=== PATIENT | male | born 1955 | race Caucasian/White ===

== ENCOUNTER → 2016-08-01 | Outpatient (CLI) | payer MEDICAID ==
[~2016-08-01] MED LIST: ASPIRIN 32325 MG/TA1 PO; BACTRIM DS 8001 TAB PO; CLARITIN-D 10 M1 T24 PO; COD LIVER OIL1 CAP PO; DICLOXACILLIN500 MG PO; DOXYCYCLINE 10100 MG PO; FIORICET 325 MG1 TA1 PO; HUMIRA40 MG/0.1 SC; KLONOPIN 0.5MG0.5 MG PO; LIPITOR 80MG80 MG PO; LOPRESSOR 225 MG/TAB PO; MEDROL 4MG DOSPA4 MG PO; MEDROL4 MG; MOBIC 7.5MG7.5 MG PO; NAPROSYN500 MG PO; NATURAL MAGNES200 MG; NEURONTIN300 MG/CAP PO; NITRO-DUR0.2 MG/PAT TD; NITROSTAT0.4 MG/TAB SL; NORCO 325 MG-51 TAB PO; OMEGA-31 SGL PO; PERCOCET 325 MG1 TA2 PO; PHENERGAN 25 TA25 MG PO; PLAVIX 75MG TAB75 MG PO; PRAVACHOL 40MG40 MG PO; PREDNISONE 5MG5 MG PO; PREDNISONE20 MG PO; PRILOSEC 20MG20 MG PO; RANEXA 500MG T500 MG PO; SYNTHROID 0.10.15 MG PO; TIROSINT100 MCG PO; TOPROL XL 25MG25 MG; TOPROL XL 25MG25 MG PO; TURMERIC1 POW; VIT D; XANAX 0.5MG0.5 MG PO; ZYLOPRIM 100MG100 MG PO
[2016-08-01 10:39] LABS: BASO # 0.1 (0.0-0.2); BASO % 0.4 % (0.0-2.0); EOS # 0.2 (0.0-0.7); EOS % 1.5 % (0-4.0); GRAN # 8.7 (1.4-6.5); GRAN % 70.2 % (42.2-75.2); HEMATOCRIT 48.2 % (42.0-52.0); HEMOGLOBIN 15.5 g/dl (13.5-18.0); LYMPH # 2.6 (1.2-3.4); LYMPH % 20.6 % (20.0-51.0); MEAN CELL VOLUME 87 fl (80.0-100.0); MEAN CORPUSCULAR HEMOGLOBIN 28 pg (27.0-31.0); MEAN CORPUSCULAR HGB CONC 32 g/dl (33.0-37.0); MEAN PLATELET VOLUME 9.7 fl (7.4-10.4); MONO # 0.9 (0.1-0.6); MONO % 6.9 % (1.7-9.3); PLATELET COUNT 330 K/mm3 (130-400); RED BLOOD COUNT 5.54 M/mm3 (4.20-5.60); REDCELL DISTRIBUTION WIDTH-CV 14.6 % (11.5-14.5); WHITE BLOOD COUNT 12.5 K/mm3 (4.8-10.8)
[2016-08-01 10:47] LABS: ADJUSTED CALCIUM 9.2 mg/dL (8.4-10.2); ALBUMIN 4.2 gm/dL (3.5-5.0); BILIRUBIN,TOTAL 1.1 mg/dL (0.0-1.0); CALCIUM 9.4 mg/dL (8.4-10.2); CREATININE, serum 0.97 mg/dL (0.66-1.25); POTASSIUM 3.8 mmol/L (3.4-5.0); TOTAL PROTEIN 7.6 gm/dL (6.4-8.2)
== END ==
LOC: COL.LAB 10:01
PROVIDERS: Registered Nurse
DX: M06.89 Other specified rheumatoid arthritis, multiple sites (principal); Z79.899 Other long term (current) drug therapy

== ENCOUNTER 2016-12-17 09:26 | Emergency (ER) | payer MEDICAID ==
[~2016-12-17] VITALS: Ht 177.8 cm; Wt 109.1 kg
[~2016-12-17 09:26] MED LIST changes: -DICLOXACILLIN500 MG PO; -NAPROSYN500 MG PO; -PREDNISONE20 MG PO
[2016-12-17 09:35] VITALS: TEMP 98
[2016-12-17 10:19] LABS: BASO # 0.1 (0.0-0.2); BASO % 0.9 % (0.0-2.0); EOS # 0.2 (0.0-0.7); GRAN % 67.8 % (42.2-75.2); HEMATOCRIT 44.9 % (42.0-52.0); HEMOGLOBIN 14.8 g/dl (13.5-18.0); LYMPH # 1.9 (1.2-3.4); LYMPH % 21.3 % (20.0-51.0); MEAN CELL VOLUME 82 fl (80.0-100.0); MEAN CORPUSCULAR HEMOGLOBIN 27 pg (27.0-31.0); MEAN CORPUSCULAR HGB CONC 33 g/dl (33.0-37.0); MEAN PLATELET VOLUME 9.5 fl (7.4-10.4); MONO # 0.7 (0.1-0.6); MONO % 7.5 % (1.7-9.3); PLATELET COUNT 328 K/mm3 (130-400); RED BLOOD COUNT 5.49 M/mm3 (4.20-5.60); REDCELL DISTRIBUTION WIDTH-CV 14.3 % (11.5-14.5); WHITE BLOOD COUNT 8.8 K/mm3 (4.8-10.8)
[2016-12-17] MEDS ORDERED: NAPROSYN500 MG PO (10:28)
[2016-12-17] MEDS ORDERED: TOPROL XL 25MG25 MG PO (10:28)
[2016-12-17 10:34] LABS: ADJUSTED CALCIUM 10.1 mg/dL (8.4-10.2); ALANINE AMINOTRANSFERASE 18 U/L (21-72); ALKALINE PHOSPHATASE 84 U/L (50-136); ANION GAP 17 mmol/L (7-16); BLOOD UREA NITROGEN 16 mg/dL (9-20); CALCIUM 10.1 mg/dL (8.4-10.2); CARBON DIOXIDE 19 mmol/L (22-30); CHLORIDE 100 mmol/L (98-107); CREATININE, serum 1.13 mg/dL (0.66-1.25); GLUCOSE 143 mg/dL (74-106); SODIUM 135 mmol/L (137-145); TOTAL PROTEIN 7.6 gm/dL (6.4-8.2)
[2016-12-17 10:39] LABS: B-TYPE NATRIURETIC PEPTIDE 166 pg/mL (0-125)
[2016-12-17 10:42] LABS: ERYTHROCYTE SEDIMENTATION RATE 22 mm/hr (0-30)
[2016-12-17 10:45] LABS: TROPONIN-I < 0.012 ng/mL (0.000-0.034)
[2016-12-17] MEDS ORDERED: NORCO 325 MG-51 TAB PO (12:01)
[2016-12-17] MEDS ORDERED: PREDNISONE20 MG PO (12:01)
[2016-12-17] MEDS ORDERED: DOXYCYCLINE 10100 MG PO (12:01)
[2016-12-17 12:17] VITALS: BP 136/82; PULSE 84
[2016-12-21] MEDS ORDERED: DICLOXACILLIN500 MG PO (18:07)
== END 2016-12-17 12:19 | disposition home or self-care (01) ==
LOC: COL.ER 09:26
PROVIDERS: Emergency Medicine
DX: L02.415 Cutaneous abscess of right lower limb (principal); M06.9 Rheumatoid arthritis, unspecified; B95.7 Other staphylococcus as the cause of diseases classified elsewhere; I10 Essential (primary) hypertension; I25.10 Atherosclerotic heart disease of native coronary artery without angina pectoris; E78.00 Pure hypercholesterolemia, unspecified; Z91.19 Patient's noncompliance with other medical treatment and regimen; Z79.82 Long term (current) use of aspirin; Z95.1 Presence of aortocoronary bypass graft; Z95.5 Presence of coronary angioplasty implant and graft
CPT/HCPCS: J1170; J2405; J7030; J7512

== ENCOUNTER 2017-05-09 14:48 | Observation (INO) | payer MEDICAID ==
[~2017-05-09] VITALS: Ht 177.8 cm; Wt 99.6 kg
[~2017-05-09 14:48] MED LIST changes: +DICLOXACILLIN500 MG PO; +NAPROSYN500 MG PO; +PREDNISONE20 MG PO
[2017-05-09] MEDS ORDERED: MEDROL8 M1 PO (16:00)
[2017-05-09] MEDS ORDERED: HUMIRA40 MG/0.1 SQ (16:07)
[2017-05-09 16:09] LABS: ADJUSTED CALCIUM 9.9 mg/dL (8.4-10.2); ALANINE AMINOTRANSFERASE 39 U/L (21-72); ALBUMIN 3.9 gm/dL (3.5-5.0); ALKALINE PHOSPHATASE 96 U/L (50-136); ANION GAP 9 mmol/L (7-16); BILIRUBIN,TOTAL 1.2 mg/dL (0.0-1.0); BLOOD UREA NITROGEN 20 mg/dL (9-20); CALCIUM 9.8 mg/dL (8.4-10.2); CARBON DIOXIDE 23 mmol/L (22-30); CHLORIDE 101 mmol/L (98-107); CREATININE, serum 0.94 mg/dL (0.66-1.25); GLUCOSE 148 mg/dL (74-106); LIPASE 72 U/L (23-300); POTASSIUM 3.7 mmol/L (3.4-5.0); SODIUM 133 mmol/L (137-145); TOTAL PROTEIN 7.1 gm/dL (6.4-8.2)
[2017-05-09 16:18] LABS: TROPONIN-I < 0.012 ng/mL (0.000-0.034)
[2017-05-09 16:58] LABS: COLLECTION METHOD CLEAN CATCH
[2017-05-09 17:04] LABS: MUCOUS Present /lpf; PH 6 (5-8); SQUAMOUS EPITHELIAL None Seen /hpf; URINE APPEARANCE Clear; URINE BACTERIA None Seen /hpf; URINE BILIRUBIN Negative (NEGATIVE); URINE BLOOD Negative (NEGATIVE); URINE COLOR Yellow; URINE GLUCOSE Negative (NEGATIVE); URINE KETONE Negative (NEGATIVE); URINE LEUKOCYTE ESTERASE Negative (NEGATIVE); URINE PROTEIN(semi-quant) Negative (NEGATIVE); URINE RBC 0-2 /hpf; URINE UROBILINOGEN Negative (NEGATIVE); URINE WBC None Seen /hpf
[2017-05-09 18:33] LABS: BASO # 0.1 (0.0-0.2); BASO % 0.3 % (0.0-2.0); EOS # 0.1 (0.0-0.7); EOS % 0.5 % (0-4.0); GRAN # 13.2 (1.4-6.5); GRAN % 83.6 % (42.2-75.2); HEMATOCRIT 49.4 % (42.0-52.0); LYMPH # 1.4 (1.2-3.4); LYMPH % 9.1 % (20.0-51.0); MEAN CELL VOLUME 83 fl (80.0-100.0); MEAN CORPUSCULAR HEMOGLOBIN 27 pg (27.0-31.0); MEAN CORPUSCULAR HGB CONC 32 g/dl (33.0-37.0); MEAN PLATELET VOLUME 9.8 fl (7.4-10.4); MONO % 6.1 % (1.7-9.3); PLATELET COUNT 339 K/mm3 (130-400); RED BLOOD COUNT 5.98 M/mm3 (4.20-5.60); WHITE BLOOD COUNT 15.8 K/mm3 (4.8-10.8)
[2017-05-09 20:54] VITALS: BP 115/46; PULSE 85; TEMP 98.2
[2017-05-09 20:55] VITALS: BP 115/46; PULSE 85; TEMP 98.2
[2017-05-09 23:26] VITALS: BP 131/90; PULSE 78; TEMP 98.8
[2017-05-10 03:20] VITALS: BP 129/71; PULSE 78; TEMP 98.5
[2017-05-10 07:15] LABS: HEMATOCRIT 46.2 % (42.0-52.0); HEMOGLOBIN 14.9 g/dl (13.5-18.0); MEAN CELL VOLUME 83 fl (80.0-100.0); MEAN CORPUSCULAR HEMOGLOBIN 27 pg (27.0-31.0); MEAN CORPUSCULAR HGB CONC 32 g/dl (33.0-37.0); MEAN PLATELET VOLUME 9.6 fl (7.4-10.4); PLATELET COUNT 303 K/mm3 (130-400); RED BLOOD COUNT 5.55 M/mm3 (4.20-5.60); WHITE BLOOD COUNT 11.9 K/mm3 (4.8-10.8)
[2017-05-10 07:16] LABS: ADD PATHOLOGY DIFF REVIEW NO
[2017-05-10 07:23] LABS: CALCIUM 9.3 mg/dL (8.4-10.2); CREATININE, serum 0.91 mg/dL (0.66-1.25); POTASSIUM 4.2 mmol/L (3.4-5.0)
[2017-05-10 07:42] LABS: BAND 19 % (0-10); LYMPHOCYTE 3 % (20.0-51.0); NEUTROPHILS 78 % (42.0-75.2); PLATELET ESTIMATE NORMAL (NORMAL); TOTAL CELLS COUNTED 100
[2017-05-10 09:05] VITALS: BP 114/61; PULSE 76; TEMP 97.6
[2017-05-10 11:49] VITALS: BP 127/65; PULSE 81; TEMP 98.2
[2017-05-10 15:31] VITALS: BP 124/65; PULSE 73; TEMP 98
[2017-05-10 15:55] VITALS: BP 142/84; PULSE 66; TEMP 98.7
[2017-05-10 20:18] VITALS: BP 122/70; PULSE 90; TEMP 97.7
[2017-05-11 00:44] VITALS: BP 146/87; PULSE 80; TEMP 97.9
[2017-05-11 04:31] VITALS: BP 4101/55; PULSE 75; TEMP 97.7
[2017-05-11 07:16] LABS: BASO % 0.2 % (0.0-2.0); EOS % 0.2 % (0-4.0); GRAN # 11.2 (1.4-6.5); GRAN % 80.1 % (42.2-75.2); HEMATOCRIT 40.7 % (42.0-52.0); HEMOGLOBIN 13.3 g/dl (13.5-18.0); LYMPH # 1.9 (1.2-3.4); LYMPH % 13.4 % (20.0-51.0); MEAN CELL VOLUME 83 fl (80.0-100.0); MEAN CORPUSCULAR HEMOGLOBIN 27 pg (27.0-31.0); MEAN CORPUSCULAR HGB CONC 33 g/dl (33.0-37.0); MEAN PLATELET VOLUME 9.7 fl (7.4-10.4); MONO # 0.8 (0.1-0.6); MONO % 5.7 % (1.7-9.3); PLATELET COUNT 277 K/mm3 (130-400); RED BLOOD COUNT 4.92 M/mm3 (4.20-5.60)
[2017-05-11 07:28] LABS: CREATININE, serum 0.86 mg/dL (0.66-1.25); POTASSIUM 3.6 mmol/L (3.4-5.0)
[2017-05-11 07:47] VITALS: BP 100/40; PULSE 69; TEMP 97.8
[2017-05-11 11:42] VITALS: BP 118/71; PULSE 86; TEMP 98.4
[2017-05-11 17:01] VITALS: BP 115/73; PULSE 80; TEMP 98.4
[2017-05-11] MEDS ORDERED: ZOFRAN 4MG T4 MG/TAB PO (17:21)
[2017-05-11] MEDS ORDERED: NORCO 325 MG-51 TAB PO (17:21)
== END 2017-05-11 18:09 | disposition home or self-care (01) ==
LOC: COL.ER 14:48 → MEDICAL 18:27
PROVIDERS: Family Medicine; Nurse Practitioner; Physician Assistant
DX: K52.9 Noninfective gastroenteritis and colitis, unspecified (principal); D72.829 Elevated white blood cell count, unspecified; E87.1 Hypo-osmolality and hyponatremia; J84.10 Pulmonary fibrosis, unspecified; F32.9 Major depressive disorder, single episode, unspecified; I25.10 Atherosclerotic heart disease of native coronary artery without angina pectoris; F41.9 Anxiety disorder, unspecified; I71.4 Abdominal aortic aneurysm, without rupture; K76.0 Fatty (change of) liver, not elsewhere classified; M06.9 Rheumatoid arthritis, unspecified; E03.9 Hypothyroidism, unspecified; Z95.5 Presence of coronary angioplasty implant and graft; Z95.1 Presence of aortocoronary bypass graft; Z90.49 Acquired absence of other specified parts of digestive tract; Z87.891 Personal history of nicotine dependence; Z82.49 Family history of ischemic heart disease and other diseases of the circulatory system; Z83.3 Family history of diabetes mellitus
CPT/HCPCS: G0378; J1170; J1650; J2060; J2405; J2550; J2930; J7030; J7050; J7509; Q9967

== ENCOUNTER 2021-02-10 08:17 | Emergency (ER) | payer MEDICAID ==
[~2021-02-10] VITALS: Ht 177.8 cm; Wt 93.2 kg
[~2021-02-10 08:17] MED LIST changes: +HUMIRA40 MG/0.1 SQ; +MEDROL8 M1 PO; +ZOFRAN 4MG T4 MG/TAB PO
[2021-02-10 08:23] VITALS: TEMP 98
[2021-02-10 10:12] LABS: BASO # 0.1 (0.0-0.2); BASO % 0.4 % (0.0-2.0); EOS # 0.1 (0.0-0.7); GRAN # 10.5 (1.4-6.5); GRAN % 83.9 % (42.2-75.2); HEMATOCRIT 46.4 % (42.0-52.0); HEMOGLOBIN 15.8 g/dl (13.5-18.0); LYMPH # 0.8 (1.2-3.4); LYMPH % 6.7 % (20.0-51.0); MEAN CELL VOLUME 79 fl (80.0-100.0); MEAN CORPUSCULAR HEMOGLOBIN 27 pg (27.0-31.0); MEAN CORPUSCULAR HGB CONC 34 g/dl (33.0-37.0); MEAN PLATELET VOLUME 8.9 fl (7.4-10.4); MONO # 0.9 (0.1-0.6); MONO % 7.5 % (1.7-9.3); PLATELET COUNT 308 K/mm3 (130-400); RED BLOOD COUNT 5.89 M/mm3 (4.20-5.60)
[2021-02-10 10:22] LABS: CALCIUM 9.7 mg/dL (8.4-10.2); CREATININE, serum 1.07 (0.66-1.25)
[2021-02-10] MEDS ORDERED: NORCO 325 MG-51 TAB PO (11:14)
[2021-02-10] MEDS ORDERED: ASPERCREME1 EACH TP (11:14)
[2021-02-10 11:40] VITALS: BP 123/100; PULSE 80
== END 2021-02-10 11:34 | disposition home or self-care (01) ==
LOC: COL.ER 08:17
PROVIDERS: Emergency Medicine
DX: M54.9 Dorsalgia, unspecified (principal); G89.29 Other chronic pain; I25.10 Atherosclerotic heart disease of native coronary artery without angina pectoris; E03.9 Hypothyroidism, unspecified; Z79.82 Long term (current) use of aspirin; Z79.890 Hormone replacement therapy
CPT/HCPCS: J2270; J2405; J7512; Q9967

== ENCOUNTER 2021-11-13 22:16 | Emergency (ER) | payer MEDICARE, MEDICAID ==
[~2021-11-13] VITALS: Ht 177.8 cm; Wt 103.6 kg
[~2021-11-13 22:16] MED LIST changes: +ASPERCREME1 EACH TP
[2021-11-13 22:48] LABS: EOS # 0.1 K/mm3 (0.0-0.7); EOS % 1.7 % (0.0-4.0); GRAN # 2.1 K/mm3 (1.4-6.5); GRAN % 51.9 % (42.2-75.2); HEMATOCRIT 41.7 % (42.0-52.0); HEMOGLOBIN 13.9 g/dl (13.5-18.0); LYMPH # 1.1 K/mm3 (1.2-3.4); LYMPH % 26.8 % (20.0-51.0); MEAN CELL VOLUME 79 fl (80.0-100.0); MEAN CORPUSCULAR HEMOGLOBIN 27 pg (27-31); MEAN CORPUSCULAR HGB CONC 33 g/dl (33.0-37.0); MEAN PLATELET VOLUME 9.4 fl (7.4-10.4); MONO # 0.7 K/mm3 (0.1-0.6); MONO % 18.4 % (1.7-9.3); PLATELET COUNT 239 K/mm3 (130-400); RED BLOOD COUNT 5.25 M/mm3 (4.20-5.60); REDCELL DISTRIBUTION WIDTH-CV 15.9 % (11.5-14.5)
[2021-11-13] MEDS ORDERED: CYMBALTA 60MG60 MG PO (22:57)
[2021-11-13] MEDS ORDERED: PRIL40 PO (22:58)
[2021-11-13] MEDS ORDERED: NEURONTIN400 MG/CAP PO (23:00)
[2021-11-13] MEDS ORDERED: PAMELOR 10MG10 MG PO (23:01)
[2021-11-13] MEDS ORDERED: ZETIA 10MG TAB10 MG PO (23:02)
[2021-11-13] MEDS ORDERED: LASIX 40MG TABL40 MG PO (23:03)
[2021-11-13 23:09] LABS: ALBUMIN 4.1 gm/dL (3.4-4.8); BILIRUBIN,TOTAL 0.7 mg/dL (0.2-1.2); CALCIUM 9.6 mg/dL (8.4-10.2); CREATININE, serum 0.98 mg/dL (0.72-1.25); TOTAL PROTEIN 7.3 gm/dL (6.2-8.1)
[2021-11-13] MEDS ORDERED: ZOFRAN ODT4 MG PO (23:42)
[2021-11-13] MEDS ORDERED: PAXLOVID CO-PA1 EACH PO (23:48)
[2021-11-13 23:55] VITALS: BP 130/73; PULSE 89; TEMP 98.3
== END 2021-11-14 00:02 | disposition home or self-care (01) ==
LOC: COL.ER 22:16
PROVIDERS: Emergency Medicine
DX: U07.1 COVID-19 (principal); D72.819 Decreased white blood cell count, unspecified; Z87.891 Personal history of nicotine dependence; Z28.310 Unvaccinated for COVID-19
CPT/HCPCS: J2405; J7120

== ENCOUNTER 2021-12-05 09:51 | Emergency (ER) | payer MEDICARE, MEDICAID ==
[~2021-12-05] VITALS: Ht 177.8 cm; Wt 100.5 kg
[~2021-12-05 09:51] MED LIST changes: +CYMBALTA 60MG60 MG PO; +LASIX 40MG TABL40 MG PO; +NEURONTIN400 MG/CAP PO; +PAMELOR 10MG10 MG PO; +PAXLOVID CO-PA1 EACH PO; +PRIL40 PO; +ZETIA 10MG TAB10 MG PO; +ZOFRAN ODT4 MG PO
[2021-12-05 10:13] VITALS: TEMP 97.8
[2021-12-05 12:45] LABS: BASO # 0.1 K/mm3 (0.0-0.2); BASO % 0.9 % (0.0-2.0); EOS # 0.2 K/mm3 (0.0-0.7); EOS % 2.3 % (0.0-4.0); GRAN # 5.2 K/mm3 (1.4-6.5); GRAN % 64.3 % (42.2-75.2); HEMATOCRIT 41.2 % (42.0-52.0); HEMOGLOBIN 13.6 g/dl (13.5-18.0); LYMPH # 1.7 K/mm3 (1.2-3.4); LYMPH % 21.8 % (20.0-51.0); MEAN CELL VOLUME 81 fl (80.0-100.0); MEAN CORPUSCULAR HEMOGLOBIN 27 pg (27-31); MEAN CORPUSCULAR HGB CONC 33 g/dl (33.0-37.0); MEAN PLATELET VOLUME 9.4 fl (7.4-10.4); MONO # 0.8 K/mm3 (0.1-0.6); MONO % 10.4 % (1.7-9.3); PLATELET COUNT 286 K/mm3 (130-400); RED BLOOD COUNT 5.07 M/mm3 (4.20-5.60); REDCELL DISTRIBUTION WIDTH-CV 16.4 % (11.5-14.5)
[2021-12-05 13:03] LABS: ALBUMIN 3.8 gm/dL (3.4-4.8); BILIRUBIN,TOTAL 0.7 mg/dL (0.2-1.2); CALCIUM 9.4 mg/dL (8.4-10.2); CREATININE, serum 0.97 mg/dL (0.72-1.25); POTASSIUM 4.5 mmol/L (3.5-4.5)
[2021-12-05 13:28] LABS: COLLECTION METHOD CLEAN CATCH
[2021-12-05 13:47] LABS: MUCOUS Present (NOT PRESENT); PH 7 (5-8); SQUAMOUS EPITHELIAL None Seen /hpf (0-10); URINE APPEARANCE Cloudy (CLEAR/HAZY); URINE BACTERIA Moderate /hpf (NONE SEEN); URINE BLOOD 3+ (NEGATIVE); URINE COLOR Red (YELLOW); URINE GLUCOSE Negative (NEGATIVE); URINE KETONE Negative (NEGATIVE); URINE NITRATE Negative (NEGATIVE); URINE PROTEIN(semi-quant) 2+ (NEGATIVE); URINE RBC >50 /hpf (0-2); URINE UROBILINOGEN Negative (NEGATIVE)
[2021-12-05 17:30] VITALS: BP 108/67; PULSE 66
== END 2021-12-05 17:30 | disposition home or self-care (01) ==
LOC: COL.ER 09:51
PROVIDERS: Emergency Medicine; Nurse Practitioner Family
DX: R33.9 Retention of urine, unspecified (principal); R31.0 Gross hematuria; R10.30 Lower abdominal pain, unspecified
CPT/HCPCS: J7030

== ENCOUNTER 2021-12-20 14:38 | Day surgery (SDC) | payer MEDICARE, MEDICAID ==
[2021-12-20] VITALS (7 sets, daily range): BP systolic 91–134; BP diastolic 60–77; PULSE 62–76; TEMP 98–98.6
[~2021-12-20] VITALS: Ht 177.8 cm; Wt 98.9 kg
[2021-12-20] MEDS ORDERED: ASPIRIN 81M81 MG/TA2 PO (15:47)
--- NOTE | 2021-12-20 18:10 | NUR ---
PT TO ROOM 327 PER BED WITH REPORT FROM [facility] MANAGER OF [email or web address]. PT RESTING IN BED, VSS, ASSESSMENTS COMPLETE. MOMIN CATHETER TO DD WITH PINK URINE IN BAG. 6000 CBI CREDIT. IV TO PUMP PER ORDERS.
[2021-12-21 00:11] VITALS: BP 95/54; PULSE 77; TEMP 97.5
--- NOTE | 2021-12-21 02:30 | NUR ---
PATIENT IN BED ON ROOM ENTRY. ALERT AND ORIENTED. HS MEDS PER EMAR. CBI INFUSING AT SLOW RATE AND URINE OUTPUT IS PALE YELLOW AND CLEAR IN MOMIN. PATIENT DENIES PAIN. IVF TO L HAND WITHOUT ISSUE. PATIENT WEANED OFF O2. DENIES ADDITIONAL NEEDS. CALL LIGHT IN REACH.
[2021-12-21 05:03] VITALS: BP 116/53; PULSE 69; TEMP 97.5
[2021-12-21 07:07] VITALS: BP 136/63; PULSE 67; TEMP 97.5
--- NOTE | 2021-12-21 09:03 | NUR ---
PT RESTING IN BED ATE 100 % OF BREAKFAST. CBI TO VERY SLOW INFUSION. NEW ORDERS TO REMOVE CATHETER AND BEGIN VOIDING TRIAL. PT EATING AND DRINKING WITH NO N/V.
--- NOTE | 2021-12-21 09:33 | NUR ---
DISCONTINUED MOMIN CATHETER AND CBI. TIP INTACT, PT TOLERATED WELL. BEGAN 6 BTTL ROUTINE.
--- NOTE | 2021-12-21 10:14 | NUR ---
Initial visit; Patient thanked Settlement Worker for looking in on him and offering God's blessings and keeping him in her prayers.
[2021-12-21 11:15] VITALS: BP 128/67; PULSE 69; TEMP 98.6
--- NOTE | 2021-12-21 12:53 | NUR ---
distillery worker general met with patient to complete intake and discuss discharge plan. Patient reports that he lives at home with his Kay ([phone]) in [place]. Kay is present at bedside. Patient is mostly independent with his ADL's and does not utilize any DME to assist with mobility. Patient reports that he has rheumatoid arthritis and his does help at times. Patient has no home oxygen needs. PCP is Dr. Mouna Rushing and he utilizes [facility] (e) of prescriptions. Patient Does not have a DPOA-HC established. He and Kay are provided education and patient verbalized his understanding and agreement that his is his decision maker. Discharge plan: Home
--- NOTE | 2021-12-21 17:38 | NUR ---
DISCHARGE INSTRUCTIONS REVIEWED WITH PT AND . QUESTIONS SOLICITED AND ANSWERED. PT LEFT UNIT AMBULATORY.
== END 2021-12-21 17:40 | disposition home or self-care (01) ==
LOC: SDCO 14:38 → SURG 18:00 → SDCO 12-21 17:40
DX: C67.9 Malignant neoplasm of bladder, unspecified (principal); Z87.891 Personal history of nicotine dependence
CPT/HCPCS: OP; J0690; J1100; J1885; J2405; J2704; J3010; J3480; J7120; Q9967

== ENCOUNTER 2022-01-20 10:51 | Day surgery (SDC) | payer MEDICARE, MEDICAID ==
[~2022-01-20] VITALS: Ht 177.8 cm; Wt 103.6 kg
[~2022-01-20 10:51] MED LIST changes: +ASPIRIN 81M81 MG/TA2 PO
[2022-01-20] MEDS ORDERED: PAMELOR 10MG10 MG PO (12:12)
[2022-01-20] MEDS ORDERED: NITROMIST0.4 MG/Act TL (12:13)
[2022-01-20 14:25] VITALS: BP 108/78; PULSE 65; TEMP 97.8
[2022-01-20 14:35] VITALS: BP 110/65; PULSE 63; TEMP 97.6
[2022-01-20 14:50] VITALS: BP 114/64; PULSE 64
[2022-01-20 15:05] VITALS: BP 112/67; PULSE 60
[2022-01-20 15:20] VITALS: BP 114/63; PULSE 60
[2022-01-20 15:35] VITALS: BP 121/72; PULSE 64
--- NOTE | 2022-01-20 15:53 | NUR ---
1435 RETURNS TO ROOM 2 PER CART. PATIENT AWAKE, ALERT. RESP CLEAR, SPONTANEOUS. VITAL SIGNS OBTAINED. PATIENT DENIES PAIN. ABD SOFT. DENIES URINARY URGENCY. 1505 AWAKE, ALERT. DENIES NAUSEA.. TOLERATES PO PUDDING AND JUICE WITHOUT NAUSEA. 1535 SITS ON EDGE OF BED, THEN AMBULATES TO BATHROOM WITH STANDBY ASSIST. PATIENT VOIDS WITHOUT DIFFICULTY. URINE WITH ONLY SLIGHT PINK TINGE AT END OF URINATION. 1540 SITS IN CHAIR, DRESSES SELF. AWAITING 'S ARRIVAL FOR DISCHARGE.
== END 2022-01-20 16:05 | disposition home or self-care (01) ==
LOC: SDCO 10:51
DX: N32.89 Other specified disorders of bladder (principal); N30.20 Other chronic cystitis without hematuria; N30.00 Acute cystitis without hematuria; C67.2 Malignant neoplasm of lateral wall of bladder; Z87.891 Personal history of nicotine dependence; I10 Essential (primary) hypertension; I25.2 Old myocardial infarction; K21.9 Gastro-esophageal reflux disease without esophagitis; Z86.16 Personal history of COVID-19
CPT/HCPCS: J0690; J1100; J2405; J2704; J3010; J7120